=== PATIENT | male | born 1960 | race Caucasian/White ===

== ENCOUNTER 2018-05-18 10:42 | Day surgery (SDC) | payer OTHER ==
[2018-05-18] MEDS ORDERED: Depo-Medrol 40 MG/ML IM ONE (10:43)
[2018-05-18] MEDS ORDERED: Sodium Chloride 0.9(Preservative Free) 10 ML IJ ONE (10:43)
[2018-05-18] MEDS ORDERED: DIPRIVAN 200 MG/20 ML IV ONE (10:43)
[2018-05-18] MEDS ORDERED: VERSED 5 MG/5 ML ONE (12:27)
--- NOTE | 2018-05-18 14:44 | XRAY ---
48 seconds fluoroscopy time in surgery for L4-S1 MILEY.
--- NOTE | 2018-05-18 14:45 | XRAY ---
Indication: L4-S1 MILEY. Intraoperative fluoroscopy was provided for 48 seconds. 4 digital spot images submitted for interpretation demonstrates posterior spinal needle tips projecting over the expected course of the right L4 and L5 nerve roots. Small amount of contrast injected for needle tip placement. Correlate with intraoperative findings/report.
[2018-05-18] MEDS ORDERED: Lactated Ringers 1,000 ML IV ONE (14:59)
== END 2018-05-18 14:28 | disposition home or self-care (01) ==
LOC: SDC-PAIN 10:42
PROVIDERS: ATTEND Psychiatry & Neurology Pain Medicine
DX: M54.16 Radiculopathy, lumbar region (principal); I10 Essential (primary) hypertension; Z79.899 Other long term (current) drug therapy
CPT/HCPCS: 64483; 64484; 72020; 77003; J1030; J2250; J2704; Q9966

== ENCOUNTER 2018-07-20 13:42 | Day surgery (SDC) | payer OTHER ==
[2018-07-20] MEDS ORDERED: Marcaine 0.5% SDV 10 ML IJ ONE (13:43)
[2018-07-20] MEDS ORDERED: Xylocaine 1% Vial 30 ML PF IJ ONE (13:43)
[2018-07-20] MEDS ORDERED: DIPRIVAN 200 MG/20 ML IV ONE (13:43)
[2018-07-20] MEDS ORDERED: Ketamine HCl 50 MG/ML IJ ONE (13:43)
[2018-07-20] MEDS ORDERED: MORPHINE SULFATE 10 MG/ML ONE (15:03)
--- NOTE | 2018-07-20 15:05 | XRAY ---
12 seconds fluoroscopy time in surgery for ganglion impar nerve block.
--- NOTE | 2018-07-20 15:08 | XRAY ---
Indication: Ganglion nerve block. Intraoperative fluoroscopy was provided for 12 seconds. Single lateral digital spot image submitted for interpretation demonstrates posterior needle tip just anterior to the sacrococcygeal junction. Small amount of contrast injected for needle tip placement. Correlate with intraoperative findings/report.
[2018-07-20] MEDS ORDERED: Lactated Ringers 1,000 ML IV ONE (18:06)
== END 2018-07-20 15:13 | disposition home or self-care (01) ==
LOC: SDC-PAIN 13:42
PROVIDERS: ATTEND Psychiatry & Neurology Pain Medicine
DX: M53.3 Sacrococcygeal disorders, not elsewhere classified (principal); M54.16 Radiculopathy, lumbar region; I10 Essential (primary) hypertension; Z79.899 Other long term (current) drug therapy; M19.90 Unspecified osteoarthritis, unspecified site; M46.1 Sacroiliitis, not elsewhere classified
CPT/HCPCS: 64999; 72220; 77002; J2001; J2270; J2704; Q9966

== ENCOUNTER 2018-07-28 09:18 | Emergency (ER) | payer OTHER ==
[2018-07-28 09:42] VITALS: PULSE 80; O2SAT 100
--- NOTE | 2018-07-28 10:02 | ERPHSYRPT ---
- History of Present Illness Time Seen by Provider: 07/28/18 09:35 Source: patient Exam Limitations: clinical condition Patient Subjective Stated Complaint: lower back pain that radiates down bilateral legs with the right being worse Triage Nursing Assessment: Pt c/o of low back pain that radiates down bilateral legs with the right being worse than the left, went to the pain clinic 2 days ago and states that he got injections on the S1, S2, and S3, got an MRI yesterday and can barely move today, BP 182/93, no difficulties with strength, pulses normal, was wheeled in by a wheelchair Physician History: PATIENT WITH A 10 YEAR HISTORY OF CHRONIC LOW BACK PAIN, SCIATICA FOR PAST 5 YEARS WITH PAIN PROGRESSIVELY WORSE. HAS ONSET OF SEVERE LOWER BACK PAIN AFTER MRI OF LUMBAR SPINE YESTERDAY. HE RATES HIS PAIN A 10/10, AND HAS NO RELIEF AFTER LYRICA, BACLOFEN AND MELOXICAM. HE DENIES LOSS OF BOWEL OR BLADDER FUNCTION OR EXTREMITY WEAKNESS. Timing/Duration: today, yesterday Method of Injury: other Quality: throbbing Back Pain Location: lumbar spine Back Pain Radiation: lower legs Severity of Pain-Max: severe Severity of Pain-Current: severe Modifying Factors: Improves With: movement Associated Symptoms: lower back pain, muscle spasms Previous symptoms: same symptoms as today Allergies/Adverse Reactions: morphine Adverse Reaction (Verified 07/28/18 09:43) Home Medications: Baclofen 10 mg [Lioresal 10 mg] 0.5 tab PO DAILY 07/28/18 [History] Lisinopril 10 mg [Zestril 10 MG] 10 mg PO DAILY 07/28/18 [History] Meloxicam 15 mg PO DAILY 07/28/18 [History] Pregabalin [Lyrica 75 mg Cap] 75 mg PO BID 07/28/18 [History] - Review of Systems Constitutional: No Fever, No Chills Eyes: No Symptoms Ears, Nose, & Throat: No Symptoms Respiratory: No Symptoms, No Cough, No Dyspnea Cardiac: No Symptoms, No Chest Pain, No Edema, No Syncope Abdominal/Gastrointestinal: No Symptoms, No Abdominal Pain, No Nausea, No Vomiting, No Diarrhea Genitourinary Symptoms: No Dysuria Musculoskeletal: No Back Pain, No Neck Pain Skin: No Symptoms, No Rash Neurological: No Dizziness, No Focal Weakness, No Sensory Changes Psychological: No Symptoms Endocrine: No Symptoms All Other Systems: Reviewed and Negative - Past Medical History Pertinent Past Medical History: No Cardiac History: Hypertension Musculoskeletal History: Other - Past Surgical History Past Surgical History: No - Social History Smoking Status: Never smoker Exposure to second hand smoke: Yes Drug Use: none Patient Lives Alone: No - Nursing Vital Signs Nursing Vital Signs: Initial Vital Signs Temperature 98.0 F 07/28/18 09:28 Pulse Rate 80 07/28/18 09:28 Blood Pressure 182/93 07/28/18 09:28 O2 Sat by Pulse Oximetry 100 07/28/18 09:28 Pain Scale Pain Intensity [Lower 3 Posterior Back] Pain Intensity 3 - Physical Exam General Appearance: mild distress Eye Exam: PERRL/EOMI, eyes nml inspection Neck Exam: normal inspection Respiratory Exam: normal breath sounds Cardiovascular Exam: regular rate/rhythm Extremity Exam: limited range of motion (THERE IS LUMBAR PARASPINAL TENDERNESS L1-L5, NO CVA TENDERNESS OR SACROILIAC TENDERNESS) Peripheral Pulses: carotid (R): 2+, carotid (L): 2+, femoral (R): 2+, femoral (L ): 2+, dorsalis-pedis (R): 2+, dorsalis-pedis (L): 2+ Neurologic Exam: alert, oriented x 3, cooperative, intensive care ambulance paramedic II-XII nml as tested SpO2 Interpretation: normal SpO2: 100 Ordered Tests: Active Orders 24 hr Category Date Time Status UA W/RFX UR CULTURE Stat Lab 07/28/18 10:04 Uncollected Medication Summary Discontinued Medications Generic Name Dose Route Start Last Admin Trade Name Bradley PRN Reason Stop Dose Admin Hydromorphone HCl 1 mg 07/28/18 10:03 07/28/18 10:20 Hydromorphone 1 Mg/Ml Ampule IM 07/28/18 10:04 1 mg STAT ONE Administration Hydromorphone HCl Confirm 07/28/18 10:17 Hydromorphone 1 Mg/Ml Ampule Administered 07/28/18 10:18 Dose 1 mg .ROUTE .STK-MED ONE Promethazine HCl 25 mg 07/28/18 10:03 07/28/18 10:21 Phenergan 25 Mg Inj IM 07/28/18 10:04 25 mg STAT ONE Administration Promethazine HCl Confirm 07/28/18 10:17 Phenergan 25 Mg Inj Administered 07/28/18 10:18 Dose 25 mg .ROUTE .STK-MED ONE - Progress Progress: improved Progress Note: 07/28/18 11:12 ADMINISTERED DILAUDID 1MG/PHENERGAN 25MG IM 07/28/18 11:14 MRI LUMBAR SPINE WITHOUT CONTRAST 07/27/2018 CONSISTENT WITH T11 TO T12 BROAD BASED DISC BULGE, AT THE L-2 TI L-3 LEVEL DEMONSTRATES MODERATES ANNULAR DISC BULGE EFFACING THE THECAL SAC. PRODUCING BILATERAL FORAMINAL STENOSIS. AT THE LEVEL L3-L4 THERE IS SEVERE SPINAL CANAL STENOSIS.AND BIATERAL FORAMINAL STENOSIS. AT THE L4-L5 LEVEL THERE IS ALSO SEVERE SPINAL CANAL STENOSIS AND BILATERAL STENOSIS. Discussed with Dr.: Other (CONSULT DR FELICIA ROSARIO OF [facility] IN AT [phone] FOR EVALUATION IN OFFICE TOMORROW) Counseled pt/family regarding: diagnosis, need for follow-up, rad results - Departure Departure Disposition: Home Clinical Impression: Chronic low back pain with bilateral sciatica, DEGENERATIVE DISC DISEASE Condition: Stable Critical Care Time: No Referrals: ANASTASIA MADERA [Primary Care Provider] - Additional Instructions: FOLLOWUP WITH DR FELICIA ROSARIO NEUROSURGEON TOMORROW FOR EVALUATION. CALL OFFICE TODAY FOR A SCHEDULED TIME. PREDNISONE 20MG, 2 TABLETS DAILY FOR 5 DAYS. NORCO 10/325 EVERY 6 HOURS FOR PAIN. RETURN TO EMERGENCY FOR INCREASING PAIN DISCOMFORT. Prescriptions: Hydrocodone/APAP 10/325 mg [Fox 10/325 MG Tablet] 1 tab PO Q6H PRN PRN # 8 tablet MDD 4 PRN Reason: Pain Prednisone 20 mg [Deltasone 20 mg] 2 tab PO DAILY #10 tablet
[2018-07-28] MEDS ORDERED: Phenergan 25 MG INJ IM ONE (10:03)
[2018-07-28] MEDS ORDERED: Hydromorphone 1 mg/ml Ampule IM ONE (10:03)
[2018-07-28] MEDS ORDERED: Phenergan 25 MG INJ ONE (10:17)
[2018-07-28] MEDS ORDERED: Hydromorphone 1 mg/ml Ampule ONE (10:17)
[2018-07-28 10:27] VITALS: BP 155/103
== END 2018-07-28 11:36 | disposition home or self-care (01) ==
LOC: ED 09:18
DX: M54.5 Low back pain (principal); M54.32 Sciatica, left side; M54.31 Sciatica, right side; G89.29 Other chronic pain; M51.36 Other intervertebral disc degeneration, lumbar region; Z79.899 Other long term (current) drug therapy; I10 Essential (primary) hypertension
CPT/HCPCS: 96372; 99284; J1170; J2550